=== PATIENT | male | born 1980 | race Caucasian/White ===

== ENCOUNTER 2018-07-13 07:11 | Emergency (ER) | payer BC, OTHER ==
[2018-07-13 07:32] VITALS: BP 160/100
[2018-07-13] MEDS ORDERED: Ibuprofen TAB* 600 MG PO ONE (07:40)
--- NOTE | 2018-07-13 07:47 | UC ---
Upper Extremity HPI - HPI Summary HPI Summary: A 38 y/o M [place] [facility] [place] R shoulder pain onset last night. Pt was at work last night and pulling filters out and heard a pop on his R shoulder. PMHx : R shoulder problems, last injured 1.5 years ago. Pt states his L shoulder feels normal, his R elbow and wrist also feel normal. - History of Current Complaint Chief Complaint: UCUpperExtremity Stated Complaint: SHOULDER INJURY Time Seen by Provider: 07/13/18 07:34 Hx Obtained From: Patient Onset/Duration: Sudden Onset, Lasting Hours - last night, Still Present Severity Initially: Severe Severity Currently: Severe Pain Intensity: 9 Pain Scale Used: 0-10 Numeric Location Of Pain: Is Discrete @ - R shoulder Aggravating Factor(s): Movement Related History: Occupational Injury - Allergies/Home Medications Allergies/Adverse Reactions: Allergies Allergy/AdvReac Type Severity Reaction Status Date / Time No Known Allergies Allergy Verified 07/13/18 07:32 Home Medications: Home Medications Loratadine 10 mg PO DAILY WITH MEAL 07/13/18 [History Confirmed 07/13/18] Omeprazole CAP* [Prilosec CAP* 20 MG] 20 mg PO DAILY 07/13/18 [History Confirmed 07/13/18] Vortioxetine Hydrobromide [Brintellix] 20 mg PO DAILY WITH MEAL 07/13/18 [ History Confirmed 07/13/18] PMH/Surg Hx/FS Hx/Imm Hx Previously Healthy: No - pos: R shoulder pain Other Cardiovascular History: neg: HTN Respiratory History: Asthma Other Respiratory History: neg: COPD - Surgical History Surgical History: Yes Surgery Procedure, Year, and Place: Jaw february 2017 - Family History Known Family History: Positive: Cardiac Disease - mom from [place] at 60, Hypertension Negative: Diabetes - Social History Occupation: Employed Full-time Lives: Alone Alcohol Use: None Substance Use Type: Marijuana Smoking Status (MU): Former Smoker Review of Systems Constitutional: Other - neg: fever Musculoskeletal: Arthralgia - RUE at shoulder, Other: - neg: LUE pain All Other Systems Reviewed And Are Negative: Yes Physical Exam - Summary Physical Exam Summary: General: well-appearing, no pain distress Skin: warm, color reflects adequate perfusion, dry Head: normal Eyes: EOMI, FRANCISCA ENT: normal Neck: supple, nontender Respiratory: CTA, breath sounds present Cardiovascular: RRR Abdomen: soft, nontender Bowel: present Musculoskeletal: Pt has tenderness to the posterior aspect of R shoulder joint. He has good pulses in wrists; full strength and ROM in bilat fingers, wrist and elbow. R shoulder ROM with extension is 90; LUE with extension is 180. RUE abduction is 90. LUE abduction is 180. RUE internal rotation is to L2. LUE internal rotation is to T8. Neurological: sensory/motor intact, A&O x3 Psychological: affect/mood appropriate Triage Information Reviewed: Yes Vital Signs: Initial Vital Signs Temp 98.3 F 07/13/18 07:25 Pulse 89 07/13/18 07:25 Resp 18 07/13/18 07:25 BP 160/100 07/13/18 07:25 Pulse Ox 96 07/13/18 07:25 Vital Signs Reviewed: Yes Diagnostics - Laboratory Diagnostic Studies Completed/Ordered: R SHOULDER XR, as read by radiologist: IMPRESSION: NO ACUTE BONY CHANGES. PROBABLE GLENOHUMERAL JOINT EFFUSION. E provider has reviewed this report. This report is only to be considered final once signed by the Provider(s) as displayed in the "<Electronically Signed by > " field (s). Absence of a. signature indicates the report is in a draft status and still needs to be finalized. In the event this document was created by someone other than the. signing Provider, the individual initiating the document will be listed in the "Entered by:" or "Dictated by:" cullen. 1 of 1 Upper Extremity Course/Dx - Course Course Of Treatment: BP noted and advised to follow up with PCP. Medications reviewed. Allergies noted. - Differential Dx/Diagnosis Provider Diagnoses: 1. RIGHT ROTATOR CUFF INJURY. 2. Elevated BP without dx of HTN Discharge - Sign-Out/Discharge Documenting (check all that apply): Patient Departure - DC All imaging exams completed and their final reports reviewed: Yes - Discharge Plan Condition: Stable Disposition: HOME Patient Education Materials: Rotator Cuff Injury (ED) Forms: *Work Release Referrals: [facility] [Provider Group] Scott Grimes [Medical Doctor] - Saniya Weaver MD [Medical Doctor] - Karley Garner PA [Primary Care Provider] - Additional Instructions: FOLLOW UP WITH SPORTS MEDICINE/ORTHOPEDICS/OCCUPATIONAL MEDICINE. GET RECHECKED FOR ANY WORSENING OF YOUR CONDITION OR QUESTIONS OR CONCERNS. Your blood pressure was elevated during todays visit; please follow up with your primary care provider within a week for further evaluation. - Billing Disposition and Condition Condition: STABLE Disposition: Home - Attestation Statements Document Initiated by Damon: Yes Documenting Scribe: Flaquita Irvin Provider For Whom Damon is Documenting (Include Credential): Poli Waddell MD Scribe Attestation: IFlaquita, scribed for Poli Waddell MD on 07/13/18 at 0930. Scribe Documentation Reviewed: Yes Provider Attestation: The documentation as recorded by the Flaquita he accurately reflects the service I personally performed and the decisions made by me, Poli Waddell MD
--- NOTE | 2018-07-13 08:10 | RAD ---
INDICATION: Right shoulder pain COMPARISON: None TECHNIQUE: Routine frontal, Y and axial views were obtained. FINDINGS: There are no acute bony findings. There is minor AC joint osteoarthritis. There is mild widening of the glenohumeral joint space suggesting a small joint effusion. IMPRESSION: NO ACUTE BONY CHANGES. PROBABLE GLENOHUMERAL JOINT EFFUSION.
== END 2018-07-13 08:40 | disposition home or self-care (01) ==
LOC: UCEAST 07:11
DX: S46.001A Unspecified injury of muscle(s) and tendon(s) of the rotator cuff of right shoulder, initial encounter (principal); J45.909 Unspecified asthma, uncomplicated; Z87.891 Personal history of nicotine dependence; R03.0 Elevated blood-pressure reading, without diagnosis of hypertension; X50.9XXA Other and unspecified overexertion or strenuous movements or postures, initial encounter; Y93.89 Activity, other specified; Y92.9 Unspecified place or not applicable; Y99.0 Civilian activity done for income or pay
CPT/HCPCS: 99211; A9270-GY; G0463

== ENCOUNTER 2019-03-24 10:32 | Day surgery (SDC) | payer OTHER ==
[~2019-03-24 10:32] MED LIST: Buffered Lidocaine 1% SYRIN* 1 ML/SYRINGE INTRADERM ONE; Gabapentin CAP(*) 300 MG PO ONE; Lactated Ringers 1000 ML Bag* 1,000 ML IV SCH; Levalbuterol 0.63MG/3ML NEB* UNIT OF USE INH PRN
[2019-03-24] MEDS ORDERED: ROPIVACAINE 5 MG/ML 30 ML BTL (0.5%) ONE (10:34)
[2019-03-24] MEDS ORDERED: ceFAZolin 1 GM in Dextrose (*) 1 GM/50 ML BAG IVPB ONE (10:40)
[2019-03-24] MEDS ORDERED: Levalbuterol 0.63MG/3ML NEB* UNIT OF USE INH ONE ×2 (10:40→15:39)
[2019-03-24] MEDS ORDERED: Buffered Lidocaine 1% SYRIN* 1 ML/SYRINGE INTRADERM ONE (10:40)
[2019-03-24] MEDS ORDERED: Gabapentin CAP(*) 300 MG ONE (10:40)
[2019-03-24] MEDS ORDERED: ceFAZolin 2 GM PREMIX in ORs 2 GM/50 ML BAG IVPB ONE (10:40)
[2019-03-24] MEDS ORDERED: Ropivacaine (OR use only) 2 MG/ML 10 ML ONE ×3 (11:12→11:14)
[2019-03-24] MEDS ORDERED: Famotidine IV* 10 MG/ML 2 ML (20 mg) ONE (11:18)
[2019-03-24] MEDS ORDERED: Midazolam* 1 MG/ML 5 ML VIAL (5 MG) ONE (12:17)
[2019-03-24] MEDS ORDERED: fentaNYL* 50 MCG/ML 2 ML VIAL (100 MCG VIAL) ONE ×3 (12:17→15:26)
[2019-03-24] MEDS ORDERED: Bupivacaine 0.5% W/EPI SDV* 30 ML VIAL ONE (12:53)
[2019-03-24] MEDS ORDERED: EPINEPHRINE 1 MG/ML 1 ML VIAL ONE (12:53)
[2019-03-24] MEDS ORDERED: Dexamethasone IV* 4 MG/ML 1 ML (4 MG) ONE (13:17)
[2019-03-24] MEDS ORDERED: Propofol* 10 MG/ML 20 ML BTL ONE ×2 (13:17→15:18)
[2019-03-24] MEDS ORDERED: Succinylcholine* 20 MG/ML 10 ML VIAL ONE (13:17)
[2019-03-24] MEDS ORDERED: Cisatracurium* 2 MG/ML MDV 5 ML ONE (13:17)
[2019-03-24] MEDS ORDERED: Ketorolac INJ* 30 MG/ML 1 ML VIAL ONE (13:17)
[2019-03-24] MEDS ORDERED: HYDROmorphone INJ1* 1 MG/ML SYRINGE IV PRN (14:36)
[2019-03-24] MEDS ORDERED: HYDROcodone/ACETAMIN 5-325 MG* 1 TAB PO PRN ×2 (14:36)
[2019-03-24] MEDS ORDERED: DiMENhydriNATE IV* 50 MG/ML VIAL IV PUSH PRN (14:36)
[2019-03-24] MEDS ORDERED: PROCHLORPERAZINE INJ 5 MG/ML 2 ML VIAL IV PRN (14:36)
[2019-03-24] MEDS ORDERED: Acetaminophen TAB* 325 MG PO PRN (14:36)
[2019-03-24] MEDS ORDERED: diPHENhydraMINE IV* 50 MG/ML 1 ml VIAL (BENADRYL) IV PRN (14:36)
[2019-03-24] MEDS ORDERED: Levalbuterol 0.63MG/3ML NEB* UNIT OF USE INH PRN (14:36)
[2019-03-24] MEDS ORDERED: Naloxone* 0.4 MG/ML 1 ML VIAL IV PRN (14:36)
[2019-03-24] MEDS: fentaNYL* 50 MCG/ML 2 ML VIAL (100 MCG VIAL) IV PRN ×2 (15:30→15:42)
[2019-03-24] MEDS ORDERED: HYDROcodone/ACETAMIN 5-325 MG* 1 TAB ONE (15:36)
[2019-03-24 16:35] VITALS: BP 153/97
--- NOTE | 2019-03-26 04:53 | OP ---
OPERATIVE NOTE: DATE OF OPERATION: 03/24/19 DATE OF : 76 SURGEON: Ricky Robbins MD GEOSPATIAL SCIENTIST: CALVIN Garcia. A physician personalized living assistant was required for the length of the procedure for help with positioning, retraction, instrumentation and closure. ANESTHESIOLOGIST: Dr. Mian Han. ANESTHESIA: General anesthesia, regional anesthesia with interscalene block, local anesthesia with 10 cc of 0.5% Marcaine with epinephrine. PRE-OP DIAGNOSES: 1. Right shoulder possible recurrent rotator cuff tendon repair, supraspinatus. 2. Right shoulder proximal biceps tendinitis, biceps medial subluxation, long head. 3. Status post 09/13/18 right shoulder rotator cuff tendon repair, mini open, supraspinatus, subacromial decompression arthroscopic and open distal clavicle resection, performed by outside surgeon POST-OP DIAGNOSES: 1. Right shoulder low-grade partial thickness tearing, bursal side, supraspinatus. 2. Right shoulder proximal biceps tendinitis, medial subluxation. 3. Right shoulder subacromial impingement. 4. Status post 09/13/18 right shoulder rotator cuff repair, mini open, arthroscopic subacromial decompression and open distal clavicle resection performed by an outside surgeon. OPERATIVE PROCEDURE: 1. Right shoulder arthroscopic rotator cuff tendon repair with REGENETEN biologic patch. 2. Right shoulder arthroscopic subacromial decompression. 3. Right shoulder arthroscopic limited debridement including labrum, AC joint, subacromial bursa. 4. Right shoulder open proximal biceps tenodesis. ANTIBIOTICS: Ancef 3 g IV. IV FLUIDS: 1500 cc lactated ringers. [id number] TIME: 76 minutes. ARTHROSCOPIC FLUID UTILIZED: 5.3 bags for a total of 16 L. SPECIMEN: None. IMPLANTS: Irvin and nephew REGENETEN biologic patch, Arthrex proximal biceps tenodesis button. COMPLICATIONS: None. ESTIMATED BLOOD LOSS: Minimal. INDICATIONS: The patient is a 39-year-old man, right-hand dominant, who does maintenance work at [employer], and was referred to me for a second opinion. He was hurt at work in April 2018. He underwent surgery in August 2018. He continued to struggle postoperatively. He received a cortisone injection, subacromial postoperatively and significant physical therapy. His pain persisted and his passive range of motion was excellent, but his active range of motion continued to struggle. MRI showed some degenerative changes of the glenohumeral joint consistent with osteoarthritis, some articular cartilage loss. There appeared to be a small partial thickness articular sided tear of the supraspinatus. Evidence of rotator cuff anchor in place. Some medial subluxation of the long head of the biceps tendon visible. A possible posterior labrum tear appreciable. X-rays and MRI showed evidence of excellent distal clavicle resection as well as subacromial decompression. Based on the patient's clinical exam, I told him that it was likely that his biceps was causing some symptoms. I could not say his rotator cuff for sure was , but there was clearly still an element of subacromial bursitis. The patient was 7 months from surgery and still struggling and so was open to the idea of repeat surgery. I told the patient that some, but certainly not all the symptoms could possibly be due to his early glenohumeral joint osteoarthritis, that could not be cured with surgery. Discussed risks and potential complications of surgery. We decided to go forward with revision surgery. I discussed biceps release or biceps tenodesis for long head of the biceps tendon treatment and the patient preferred tenodesis. DESCRIPTION OF PROCEDURE: In preoperative holding the patient signed a written consent. Operative extremity was marked in preoperative holding. In preoperative holding, anesthesia produced a regional interscalene block. The patient was taken back to the operating room and placed supine on the operating table, sedated and intubated. The patient was placed in lateral decubitus position with the right shoulder up. Hernández bag hardened, axillary roll placed. All bony prominences padded. A longitudinal traction with 15 pounds of appropriate amount of forward flexion and abduction. Right shoulder is prepped and draped. Surgical timeout performed. I placed a spinal needle into the patient's glenohumeral joint from posterior. I infused 30 cc of normal saline. I made a posterior glenohumeral joint portal under direct visualization. Started my diagnostic arthroscopy. I visualized either an anterior labral tear or an anatomic sublabral foramen. Difficult to know for sure, but was notable. Given the patient's age and activity level and some concomitant arthritis, there certainly was no indication for an anterior labral repair in this patient. Prominent superior glenohumeral joint ligament noted. No subscapularis tear appreciated. Supraspinatus was shown to have excellent tendon fiber to footprint visualization. No disruption there whatsoever. Sure there was some fraying at the undersurface of the rotator cuff, but no clear tear off of footprint. Some small bumps were noted about the humeral head, but no significant loss of articular cartilage on the humeral head. The glenoid had some areas of grade 1 or 2 articular cartilage degeneration, but overall, the glenohumeral joint looked much less degenerated than I would have expected. No loose bodies. Some minimal posterior inferior and posterior labral fraying. I established an anterior glenohumeral joint portal under direct visualization. I brought arthroscopic scissors in and cut the biceps just off of its origin. I used an arthroscopic shaver to smooth out the superior labrum. As well I used it to smooth out the anterior labrum and loan servicing specialist labrum slightly. I visualized again the undersurface of the supraspinatus and saw no clear partial thickness tear, although there was some minimal fraying. I smoothed this out very gently with arthroscopic shaver. Removed all instruments and fluid from the glenohumeral joint and moved to the subacromial space anterior and posterior. Started visualization of structures. I established lateral and then posterolateral portals under direct visualization. I debrided bursitic tissue with an arthroscopic shaver to allow good visualization of all structures. There was a still a tiny bump about the anterior aspect of the acromion. Difficult to know how symptomatic that might be in the future. However, I used an arthroscopic bur to smooth off that last nubbin or hook upfront. I visualized the rotator cuff, supraspinatus, infraspinatus. There was some fraying right at the insertion. Using a probe I was careful not to cause any damage, but it was pretty frayed right there. Certainly nothing retracted, but some frayed tissue present there representing low grade partial thickness tearing. That in combination with the fraying on the undersurface and this patient's continued trouble and pain with active range of motion convinced me to place a biologic patch. I placed an additional superolateral portal for my cannula. I next placed a medium size REGENETEN biologic patch from [employer] over the supraspinatus. I used only the PLLA absorbable anchors. It had excellent purchase. I next moved to the AC joint. Certainly, preoperative imaging had sown adequacy of the distal clavicle resection. I hence chose a vapor and a shaver to debride some of the bursitic tissue around that small joint. Removed instruments and fluid from the subacromial space. Closed skin incisions with [id number] and 12 stitches using nylon 3.0 suture. We only had bleeding at one very briefly during the procedure, which we stopped with VAPR cautery. There was no bleeding when we finished component at the case of the subacromial compartment, although I did note later in the case there was a little bit more than average amount of swelling in the right shoulder. We softened the beanbag somewhat and took up the arm out of traction and converted the patient to a slightly supine position. I next made a skin incision over the proximal anteromedial upper arm and dissected down to the bicipital groove. Removed the long head of biceps. I drilled a hole in the anterior humeral shaft. Placed pin with it. Placed 4 stitches using FiberLoop suture in the biceps, loaded a proximal biceps button, passed it into bone, flipped it, and tied a knot. Used a free needle to place a second tenodesis knot. Removed excess tendon and suture. Irrigation. Closure of subcutaneous layer with buried simple stitches using Vicryl 3.0 suture. Closure of subcuticular layer with a running stitch using Monocryl 4.0 suture. Mastisol, Steri-Strips, 4x4's, Tegaderm's. Arthroscopic skin incisions were dressed with Xeroform, 4x4's, ABD, foam tape. The patient placed in a sling with abduction pillow. The patient was awakened and extubated and transferred to the PACU. DISPOSITION: Pain control as needed. Antibiotics for 5 days postoperatively. The patient will start physical therapy immediately according to the [facility] postoperative protocol. The patient will see me in clinic 10 to 14 days postoperatively. [id number]/[facility] #: [id number] ANNA
== END 2019-03-24 16:30 | disposition home or self-care (01) ==
LOC: OR 10:32
PROVIDERS: ATTEND Orthopaedic Surgery
DX: S46.011D Strain of muscle(s) and tendon(s) of the rotator cuff of right shoulder, subsequent encounter (principal); M75.21 Bicipital tendinitis, right shoulder; M75.41 Impingement syndrome of right shoulder; X58.XXXD Exposure to other specified factors, subsequent encounter; Y92.69 Other specified industrial and construction area as the place of occurrence of the external cause; Z87.891 Personal history of nicotine dependence; F41.8 Other specified anxiety disorders; F41.9 Anxiety disorder, unspecified; G89.18 Other acute postprocedural pain
CPT/HCPCS: A9270-GY; C1713; C1776; J0330; J0690; J1100; J1885; J2250; J2704; J2795; J3010